=== PATIENT | female | born 2000 | race Caucasian/White ===

== ENCOUNTER 2019-05-07 21:09 | Observation (INO) ==
[2019-05-07] MEDS ORDERED: 0.9 % Sodium Chloride 1,000 ML IVC ONE ×3 (21:18→23:52)
[2019-05-07 21:36] LABS: Basophils % 0.2 %; Eosinophils % 0.7 %; Hematocrit 42.5 % (35.3-44.9); Hemoglobin 14.1 g/dL (11.5-15.4); Immature Granulocytes % 0.2 % (0-4); Lymphocytes # 2.6 K/mcL (0.6-4.6); Mean Corpuscular HGB Conc 33.2 g/dL (31.6-35.5); Mean Corpuscular Hemoglobin 30.2 pg (28.0-33.3); Mean Platelet Volume 10.4 fL (9.4-12.4); Monocytes # 0.4 K/mcL (0.0-1.3); Monocytes % 7.2 %; Neutrophils # 2.4 K/mcL (1.6-8.9); Platelet Count 275 K/mcL (140-400); Red Blood Count 4.67 M/mcL (3.82-4.97); Red Cell Distribution Width 11.9 % (11.5-14.5); Segmented Neutrophils % 43.7 %; White Blood Count 5.4 K/mcL (4.3-11.1)
[2019-05-07 21:57] LABS: Alanine Aminotransferase 16 Units/L (7-52); Albumin 4.5 g/dL (3.5-5.7); Albumin/Globulin Ratio 1.3 (1.1-2.2); Alkaline Phosphatase 75 Units/L (34-104); Amylase 48 Units/L (29-103); Aspartate Amino Transferase 14 Units/L (13-39); BUN/Creatinine Ratio 9 (6-26); Bilirubin,Direct 0.1 mg/dL (0.0-0.2); Bilirubin,Indirect 0.2 mg/dL (0.0-1.0); Bilirubin,Total 0.3 mg/dL (0.3-1.0); Blood Urea Nitrogen 6 mg/dL (6-20); Calcium 9.7 mg/dL (8.6-10.3); Carbon Dioxide 26 mEq/L (23-29); Chloride 104 mEq/L (98-107); Globulin 3.4 g/dL (2.4-3.5); Glucose 69 mg/dL (70-105); Lipase 19 Units/L (11-82); Osmolality,Calculated 284 (280-300); Potassium 3.3 mEq/L (3.5-5.1); Sodium 139 mEq/L (136-145); Total Protein 7.9 g/dL (6.4-8.9); eGFR For African Americans > 60 (> 60); eGFR For Non-African Americans > 60 (> 60)
[2019-05-07] MEDS ORDERED: Isovue-370 500 ML BOTTLE IVP ONE (22:02)
[2019-05-07 22:44] LABS: Bilirubin,Urine Negative (Negative); Blood,Urine Negative (Negative); Clarity,Urine Cloudy (Clear); Color,Urine Yellow (Yellow); Glucose,Urine (UA) Normal (Normal); Ketones,Urine Negative (Negative); Leukocyte Esterase,Urine Moderate (Negative); Nitrite,Urine Negative (Negative); Protein,Urine Negative (Neg-Trace); Specific Gravity,Urine 1.026 (1.010-1.025); Urobilinogen,Urine Normal (Normal)
[2019-05-07 22:47] LABS: Bacteria,Urine None Seen per hpf (None-Few); Hyaline Casts,Urine None Seen per lpf (None-Few); RBC,Urine 0-3 per hpf (0-3); Squamous Epithelial Cell,Urine Many per lpf (None-Few)
[2019-05-07] MEDS ORDERED: Ondansetron 4 MG/2 ML VIAL IVP ONE (23:35)
[2019-05-07] MEDS ORDERED: Metoclopramide 10 MG/2 ML VIAL IVP ONE (23:51)
[2019-05-08] MEDS ORDERED: Naloxone 0.4 MG/ML INJ IVP PRN (02:35)
[2019-05-08 04:15] LABS: Basophils % 0.2 %; Eosinophils # 0.1 K/mcL (0.0-0.6); Eosinophils % 1.3 %; Hematocrit 33.9 % (35.3-44.9); Hemoglobin 11.2 g/dL (11.5-15.4); Lymphocytes # 2.1 K/mcL (0.6-4.6); Lymphocytes % 46.3 %; Mean Corpuscular Hemoglobin 30.2 pg (28.0-33.3); Mean Corpuscular Volume 91.4 fL (83.0-100.0); Mean Platelet Volume 10.5 fL (9.4-12.4); Monocytes # 0.4 K/mcL (0.0-1.3); Platelet Count 193 K/mcL (140-400); Red Blood Count 3.71 M/mcL (3.82-4.97); Red Cell Distribution Width 11.9 % (11.5-14.5); Segmented Neutrophils % 44.2 %; White Blood Count 4.6 K/mcL (4.3-11.1)
[2019-05-08 04:35] LABS: BUN/Creatinine Ratio 5 (6-26); Blood Urea Nitrogen 3 mg/dL (6-20); Calcium 7.7 mg/dL (8.6-10.3); Carbon Dioxide 21 mEq/L (23-29); Chloride 114 mEq/L (98-107); Glucose 92 mg/dL (70-105); Magnesium 1.7 mg/dL (1.6-2.6); Osmolality,Calculated 282 (280-300); Phosphorous 2.9 mg/dL (2.7-4.5); Potassium 3.4 mEq/L (3.5-5.1); Sodium 138 mEq/L (136-145); eGFR For African Americans > 60 (> 60); eGFR For Non-African Americans > 60 (> 60)
[2019-05-08 04:36] LABS: C-Reactive Protein < 5 mg/L (Less than 10)
[2019-05-08 04:49] LABS: Thyroid Stimulating Hormone 3.072 mcIU/mL (0.340-5.600)
[2019-05-08 11:17] VITALS: BP 97/65
== END 2019-05-08 12:40 | disposition home or self-care (01) ==
LOC: 3BNU 21:09 → EMEROOARM 21:09 → SUATTDRO 05-08 01:12 → 3BNU 05-08 01:50
PROVIDERS: ADMIT Family Medicine; ATTEND Internal Medicine